=== PATIENT | female | born 1965 | race Caucasian/White ===

== ENCOUNTER 2021-08-14 15:11 | Emergency (ER) | payer BC, SELFPAY ==
[2021-08-14 15:36] VITALS: BP 141/90; PULSE 90; RESP 16; TEMP 36.4; O2SAT 100
--- NOTE | 2021-08-14 15:58 | ED.SKABFB ---
HPI - Skin/Abscess/Foreign Bdy General Chief complaint: Skin/Abscess/Foreign Body Stated complaint: rash Source: patient and RN notes reviewed Limitations: no limitations History of Present Illness HPI narrative: The overweight patient, on minimal medications, presents with skin eruption. Patient states she has 1/2-week history of pink, itchy, pimply raised eruption sporadically occurring trunk and extremities. She attributes onset to recent yardwork over week ago-- half week before the rash started. No prior/other rashes, fever, linear component, discharge, abscess/induration, streaking, palmar or mucous membrane involvement. Symptoms are mild; worse with scratching or hot showers unimproved with OTC preparations like Zyrtec, HC Related Data Home Medications Medication Instructions Recorded Confirmed cetirizine [Zyrtec] 10 mg PO DAILY 08/14/21 08/14/21 Allergies Allergy/AdvReac Type Severity Reaction Status Date / Time amoxicillin [From Augmentin] AdvReac Intermediate Nausea and Verified 08/14/21 15:41 Vomiting clavulanic acid AdvReac Intermediate Nausea and Verified 08/14/21 15:41 [From Augmentin] Vomiting Review of Systems Review of Systems: General/Constitutional: No weight loss,fever Eyes: N0: Redness,discharge Ears/Nose/Throat: No: Epistaxis,ear discharge Respiratory: Denies: Hemoptysis Gastrointestinal: No Vomiting, Bleeding-rectal Skin: No Lumps, REPORTS eruption Neurologic: No Focal Weakness,Sz Hematologic: Denies: Petechiae/Purpura Psychiatric: No: Suicida ideationl All Other Systems: Reviewed and Negative PMFSH Comments At time of signature, agree with nursing past medical, surgical, social and family history. There is no relevant family history pertinent to the presenting complaint Exam Narrative: General Appearance: Well appearing, No distress EYE: PERRLA, Conjunctiva Skin: Warm, Dry; macular papular eruption with occ papulovesicular component on trunk and extremities Ears: External ear normal Nose: Normal nose Mouth/Throat: Normal appearing, Normal lips, Supple Respiratory: Airway patent, No respiratory distress Musculoskeletal: Full ROM Neurological: A&O x3, CN II-X intact Psychiatric: Normal mood, Normal affect Course Vital Signs Vital signs: Vital Signs Temperature 97.5 F L 08/14/21 15:36 Pulse Rate 90 08/14/21 15:36 Respiratory Rate 16 08/14/21 15:36 Blood Pressure 141/90 H 08/14/21 15:36 Pulse Oximetry 100 08/14/21 15:36 Temperature 97.5 F L 08/14/21 15:36 Pulse Rate 90 08/14/21 15:36 Respiratory Rate 16 08/14/21 15:36 Blood Pressure 141/90 H 08/14/21 15:36 Pulse Oximetry 100 08/14/21 15:36 Discharge Plan Discharge Clinical Impression: Vesicular eruption Patient Disposition: Home, Self-Care Condition: Stable Instructions: Folliculitis (ED) Additional Instructions: Stop clindamycin if diarrhea occurs; take antibiotic with probiotic or food Keep photo log of area Prescriptions: New clindamycin HCl 300 mg capsule 300 mg PO TID Qty: 21 RF: 0 prednisone 20 mg tablet 60 mg PO DAILY Qty: 9 RF: 0 mupirocin 2 % ointment 1 applic TOPICAL TID Qty: 30 RF: 0 No Action cetirizine [Zyrtec] 10 mg Tablet 10 mg PO DAILY RF: 0 Follow-up/Referrals: UNKNOWN,DOCTOR [Primary Care Provider] -
== END 2021-08-14 16:04 | disposition home or self-care (01) ==
PROVIDERS: Emergency Provider Emergency Medicine
DX: R23.8 Other skin changes (principal)
CPT/HCPCS: 99203; G0463

== ENCOUNTER 2022-06-22 17:15 | Emergency (ER) | payer BC, SELFPAY ==
[2022-06-22 17:38] VITALS: BP 128/78; PULSE 96; RESP 18; TEMP 36.6; O2SAT 98
--- NOTE | 2022-06-22 18:02 | ED.SKABFB ---
HPI - Skin/Abscess/Foreign Bdy General Chief complaint: Skin/Abscess/Foreign Body Stated complaint: rash Time Seen by Provider: 06/22/22 17:40 Source: patient, RN notes reviewed and old records reviewed Mode of arrival: ambulatory Limitations: no limitations History of Present Illness HPI narrative: 56 year old female who presents to [facility] care with rash for the past 3-4 days which is spreading, She has red raised rash with some vesicles noted to right hand, right neck, left abdomen and also on h left thigh which is itchy, reports that she has applied mupiricin on rash. Patient states about 5-6 days ago she was cutting bushes at her parents house and thinks she could of been exposed to some poison malcom, oak or sumac. Patient denies any shortness of breath or any difficulty swallowing. MD complaint: rash Onset (ago): day(s) (3-4) Treatments prior to arrival: other (applied Mupiricin ointment to areas.) Related Data Allergies Allergy/AdvReac Type Severity Reaction Status Date / Time amoxicillin [From Augmentin] AdvReac Intermediate Nausea and Verified 06/22/22 17:43 Vomiting clavulanic acid AdvReac Intermediate Nausea and Verified 06/22/22 17:43 [From Augmentin] Vomiting Review of Systems Review of Systems: CONSTITUTIONAL: Denies fever, chills, or sweats. CARDIOVASCULAR: Denies chest pain, palpitations, or edema. RESPIRATORY: Denies cough or dyspnea. SKIN: Reports red raised rash with some vesicle formation to right hand, right neck, left abdomen and left thigh which is itchy MUSCULOSKELETAL: Denies joint pain or myalgia. NEUROLOGIC: Denies headache, numbness, or weakness. All systems reviewed & are unremarkable except as noted in HPI and below [facility] Past Medical History Medical History (Updated 06/23/22 @ 20:01 by Linda Meyer NP) No significant past medical history Surgical History Surgical History (Updated 06/23/22 @ 20:00 by Linda Meyer NP) History of bunionectomy History of endometrial ablation vulvar cyst removed also Social History Social History (Updated 06/23/22 @ 19:58 by Linda Meyer NP) Smoking status: Never smoker Alcohol intake: unknown Substance use type: does not use Living arrangements: with family Gender identity (if verbalized by the patient): Female Comments At time of signature, agree with nursing past medical, surgical, social and family history. There is no relevant family history pertinent to the presenting complaint Exam Narrative: GENERAL: Well-appearing, well-nourished, and in no acute distress. HEAD: Normocephalic, atraumatic. EYES: PERRLA, conjunctivae clear, and EOMI. ENT: Mucous membranes moist. Oropharynx without edema, erythema or lesions. NECK: Supple. No lymphadenopathy CHEST: Clear to auscultation. No respiratory distress. HEART: Regular rate and rhythm. SKIN: Warm, dry.? Patches of erythema and edema NEURO:? Alert and oriented x3. PSYCH: Normal mood and affect Course Course Emergency Course: Patient is aware of diagnosis, understands and agrees to treatment plan.? Anticipatory guidance given.? Patient agrees to follow-up as directed and is aware of reasons to seek care at the emergency department. Portions of this record may have been created with voice recognition software Level of Care: Express Care Visit Vital Signs Vital signs: Vital Signs Temperature 36.6 C 06/22/22 17:38 Pulse Rate 96 06/22/22 17:38 Respiratory Rate 18 06/22/22 17:38 Blood Pressure 128/78 06/22/22 17:38 Pulse Oximetry 98 06/22/22 17:38 Oxygen Delivery Room Air 06/22/22 17:38 Temperature 36.6 C 06/22/22 17:38 Pulse Rate 96 06/22/22 17:38 Respiratory Rate 18 06/22/22 17:38 Blood Pressure 128/78 06/22/22 17:38 Pulse Oximetry 98 06/22/22 17:38 Oxygen Delivery Room Air 06/22/22 17:38 Reviewed MDM - Skin/Abscess/Foreign Bdy MDM Narrative Medical decision making narrative: Does not appe
== END 2022-06-22 18:28 | disposition home or self-care (01) ==
PROVIDERS: Emergency Provider Registered Nurse; PCP Internal Medicine
DX: L25.9 Unspecified contact dermatitis, unspecified cause (principal)
CPT/HCPCS: 99213; G0463